=== PATIENT | male | born 1980 | race Caucasian/White ===

== ENCOUNTER 2017-08-17 13:13 | Emergency (ER) | payer BC ==
[~2017-08-17] VITALS: Ht 180.3 cm; Wt 129.3 kg
--- NOTE | 2017-08-17 13:13 | NUR ---
C/O HIGH BP DX OF HTN 6 YEARS AGO NOT ON ANY MEDS . GIVEN CLONIDINE 0.1 SL AT URGENT CARE. PLACED ON [employer]LECT[employer]IC [employer]RA[employer]. DENIES CP
--- NOTE | 2017-08-17 13:57 | NUR ---
Patient discharged to home in stable condition. Written and verbal after care instructions given. Patient verbalizes understanding of instruction.
[2017-08-17 13:58] VITALS: BP 161/108
[2017-08-17] MEDS ORDERED: LISINOPRIL (10MG) 10 MG TABLET PO ONE (14:00)
== END 2017-08-17 13:58 | disposition home or self-care (01) ==
LOC: ER 13:17
DX: I10 Essential (primary) hypertension (principal); G43.909 Migraine, unspecified, not intractable, without status migrainosus; F10.10 Alcohol abuse, uncomplicated
CPT/HCPCS: 99283; A4606; Z7610